=== PATIENT | female | born 1995 | race Caucasian/White ===

== ENCOUNTER → 2017-11-30 | Emergency (ER) | payer OTHER ==
[~2017-11-30] VITALS: Ht 160 cm; Wt 59.0 kg
== END | disposition home or self-care (01) ==
LOC: ER 21:19
DX: H66.93 Otitis media, unspecified, bilateral (principal)

== ENCOUNTER 2018-04-18 18:31 | Emergency (ER) | payer OTHER ==
[~2018-04-18] VITALS: Ht 157.5 cm; Wt 59.4 kg
== END 2018-04-18 19:44 | disposition home or self-care (01) ==
LOC: ER 18:31
DX: H10.89 Other conjunctivitis (principal)